=== PATIENT | female | born 1985 | race African-American/Black ===

== ENCOUNTER 2022-10-13 13:46 | Emergency (ER) | payer BC, OTHER ==
[~2022-10-13] VITALS: Ht 160 cm; Wt 70.3 kg
[~2022-10-13 13:46] MED LIST: ACID BLOCKER PO; CIPRO500 MG PO; DICYCLOMINE HCL20 MG PO; DICYCLOMINE PO; MELATONIN3 MG PO; METRONIDAZOLE500 MG PO; PANTOPRAZOLE SO20 MG PO; PROBIOTIC & AC1 EACH PO; PROMETHAZINE HC25 M1 PO; TUMERIC COMPLEX PO
[2022-10-13] MEDS ORDERED: ACETAMINOPHEN-1 EAC4 PO (14:17)
[2022-10-13] MEDS ORDERED: ULTRAM 50MG50 MG PO (14:21)
[2022-10-13] MEDS ORDERED: ONDANSETRON ODT4 MG PO (14:34)
== END 2022-10-13 14:37 | disposition home or self-care (01) ==
LOC: ER 13:53
DX: R10.2 Pelvic and perineal pain (principal); N80.9 Endometriosis, unspecified
CPT/HCPCS: 99282